=== PATIENT | male | born 1990 | race Caucasian/White ===

== ENCOUNTER 2019-11-25 11:20 | Emergency (ER) | payer OTHER ==
[~2019-11-25] VITALS: Ht 175.3 cm; Wt 95.3 kg
[2019-11-25 11:40] VITALS: BP 131/68
[2019-11-25] MEDS ORDERED: TETANUS-DIPTH-ACEL PERTUSSIS 0.5ML SYR Tdap IM ONE (12:45)
[2019-11-27 08:37] LABS: Hepatitis B Surface Antibody Positive
[2019-11-27 09:33] LABS: Hepatitis B Surface Antigen Negative (Negative)
== END 2019-11-25 12:47 | disposition home or self-care (01) ==
LOC: ER 11:20
DX: S61.031A Puncture wound without foreign body of right thumb without damage to nail, initial encounter (principal); W46.1XXA Contact with contaminated hypodermic needle, initial encounter; Y93.89 Activity, other specified; Y92.89 Other specified places as the place of occurrence of the external cause; Y99.8 Other external cause status
CPT/HCPCS: 36415; 86703; 86706; 86803; 87340